=== PATIENT | male | born 1945 | race Caucasian/White ===

== ENCOUNTER 2017-02-05 16:08 | Inpatient (IN) | payer OTHER, MEDICARE ==
[~2017-02-05] VITALS: Ht 170.2 cm; Wt 91.0 kg
[2017-02-06] MEDS ORDERED: LISI40TA PO (10:58)
[2017-02-06] MEDS ORDERED: FISH1000 PO (10:58)
[2017-02-06] MEDS ORDERED: HYDR25TA5 PO (10:58)
[2017-02-06] MEDS ORDERED: GEMF600T PO (10:58)
[2017-02-06] MEDS ORDERED: MULTTAB67 PO (10:58)
[2017-02-06] MEDS ORDERED: ASPI1TAB69 PO (10:58)
[2017-02-07] MEDS ORDERED: SODIUM CHLORID 0.9% 500 ML IV PRN (06:30)
[2017-02-07] MEDS ORDERED: ROPIVACAINE PERI-ARTICULAR INJECTION. P-ARTICULR SCH ×5 (06:30)
[2017-02-07] MEDS: TRANEXAMIC ACID INJ 904 MG in SODIUM CHLORIDE 0.9% INJ 100 ML IV SCH ×2 (06:30→08:41)
[2017-02-07] MEDS ORDERED: VANCOMYCIN 1000 MG/NS 250 ML (for <70 kg) IV SCH ×2 (06:30)
[2017-02-07] MEDS ORDERED: POVIDONE IODINE 5% (ANTISEPSIS KIT) 4 APPLICATIONS EACH NARE PRN (06:30)
[2017-02-07] MEDS ORDERED: METOPROLOL TARTRATE 25 MG TAB PO PRN (06:30)
[2017-02-07] MEDS ORDERED: CHLORHEXIDINE GLUCONATE 2 % 1 PACK (2 CLOTHS) TOPICAL PRN (06:30)
[2017-02-07] MEDS ORDERED: DEXAMETHASONE SOD PHOS 20 MG/5 ML VIAL IV ONE (06:30)
[2017-02-07] MEDS ORDERED: LACTATED RINGER'S 1000 ML IV PRN (06:30)
[2017-02-07] MEDS ORDERED: INSULIN HUMAN REGULAR 1,000 UNITS/10 ML VIAL SQ PRN (06:30)
[2017-02-07] MEDS ORDERED: ceFAZolin 2 GM PREMIX 50 ML IV SCH (06:30)
--- NOTE | 2017-02-07 06:52 | HHI.DCPOC ---
Discharge Care Plan Your Health Problems Are: Difficulty with ADL Goals to Promote Your Health * To prevent worsening of your condition and complications * To maintain your health at the optimal level Directions to Meet Your Goals Take your medications as prescribed Follow your dietary instruction Follow activity as directed Keep your appointments as scheduled Take your immunizations and boosters as scheduled If your symptoms worsen call your PCP, if no PCP go to Urgent Care Center or Emergency Room Smoking is Dangerous to Your Health. Avoid second hand smoke Call the 24-hour hour crisis hotline for domestic abuse at Rik Rowe Feb 07, 2017 06:52
[2017-02-07] MEDS ORDERED: CPMMACHINE (06:54)
[2017-02-07] MEDS ORDERED: WALKER WHEELS/F1 MIS (06:54)
[2017-02-07] MEDS ORDERED: COMMODE 3-IN-11 MIS (06:54)
--- NOTE | 2017-02-07 06:54 | HHI.FF ---
Face to Face Verification Diagnosis: (1) Primary localized osteoarthrosis, lower leg (2) Status post total knee replacement, left Physical Therapy Gait training, Transfer training, bed to chair Knee: Total knee Left LE Weight Bearing: WB as tolerated Left LE Range of Motion: Active ROM Nursing Nursing: Ray teaching, Dressing changes Dressing Changes: Daily dressing change I have seen patient Tristin Connelly on 02/07/17. My clinical findings support the need for the requested home health care services because: Limited ability to care for self High risk of falls I certify that my clinical findings support that this patient is homebound because: Post-op weakness Unsteady gait/balance Rik Rowe Feb 07, 2017 06:54
[2017-02-07] MEDS: POVIDONE IODINE 7.5% SCRUB 118 ML BOTTLE TOPICAL SCH (07:15)
[2017-02-07 07:23] VITALS: BP 118/72; PULSE 63; RESP 18; TEMP 97.7; O2SAT 96
[2017-02-07] MEDS: GENTAMICIN SULFATE 80 MG/2 ML VIAL ONE ×2 (09:17→09:34)
[2017-02-07] MEDS ORDERED: PHENYLEPH/NS 1000 MCG/10 ML SYR IV ONE (10:00)
[2017-02-07] MEDS ORDERED: ONDANSETRON HCL 4 MG/2 ML VIAL IV PUSH ONE (10:00)
[2017-02-07] MEDS ORDERED: PROPOFOL 200 MG/20 ML AMP IV ONE (10:00)
[2017-02-07] MEDS ORDERED: ePHEDrine/NS 25 MG/5 ML SYR IV ONE (10:00)
[2017-02-07] MEDS ORDERED: LACTATED RINGER'S 1000 ML INJ 1,000 ML IV ONE (10:01)
[2017-02-07] MEDS: SODIUM CHLOR 0.9% 1000 ML INJ 1,000 ML IV SCH ×2 (10:38→20:38)
--- NOTE | 2017-02-07 10:42 | PD.OP ---
cc: Chip Andino MD Operative Report Date of Surgery: Feb 07, 2017 Preoperative Diagnosis: Left knee severe osteoarthritis Postoperative Diagnosis: Same Procedure: Left total knee arthroplasty Anesthesia: Adductor canal block and general Surgeon: Chip Andino Manager Organizational(s): RONALD Christie The surgical procedure was assisted by my Advanced Registered Nurse Practitioner. My DIAMOND SELECTOR presence was necessary throughout this case for the manipulation and positioning of the surgical extremity. My DIAMOND SELECTOR was assisting me throughout the duration of this procedure. The skill set of an Advance Registered Nurse Practitioner was medically necessary to complete this procedure. During the surgical case, the orthopaedic technologist was working at the back table and the Advance Registered Nurse Practitioner was directly assisting me. Operation and Findings: IMPLANTS: DePuy Attune: Patella: size 38. Femur, posterior stabilized size 9. Tibia, rotating platform size 8. Tibial insert, rotating platform, posterior stabilized size 10mm thickness. ESTIMATED BLOOD LOSS: 150 cc TOURNIQUET TIME: 45 minutes at 250 mmHg pressure. JUSTIFICATION FOR PROCEDURE: The patient has end-stage osteoarthritis to the knee. There is an attached conservative measures pathway form in the chart that describes the nonoperative measures that were undertaken prior to consideration of surgical management. The patient understood the risks and benefits of surgical management. See my office notes for further details PROCEDURE: The patient was brought back to the operative theatre. Adequate anesthesia was obtained. The patient received intravenous vancomycin and Ancef. The lower extremity was prepped and draped in the usual sterile fashion.The leg was exsanguinated, the tourniquet was raised. A standard anterior incision was performed followed by medial parapatellar arthrotomy was performed. End-stage arthritis was identified. Osteotomy of the patella was performed. We drilled holes for the patella. We trialed the patella component. We placed an intramedullary guide into the distal femur. We ultimately resected 13 mm off of the distal femur in 5 degrees of valgus. The remnants of the ACL and PCL were resected. Osteotomy of the proximal tibia was performed, resecting 7 mm off of the medial side. This was done with 3 degrees of posterior slope using an extramedullary guide. The distal end of the guide was placed in the mid aspect of the ankle. The femur was sized, and four chamfer cuts were completed in 3 of external rotation. We then cut the central box in the distal femur to replace the PCL. We resected the remnants of the menisci and removed osteophytes off of the femur and tibia. We then trialed the knee. We punched the tibia for the keel, and then used standard technique to cement in components. Excess cement was removed. We trialed the knee again and the final polyethylene thickness was chosen to provide extension to 0 degrees, and flexion of 140 degrees to gravity. The ligaments were appropriately balanced. Lateral release was necessary to obtain excellent patellofemoral tracking. The tourniquet was released and adequate hemostasis was obtained. An intra- articular injection of a ropivacaine cocktail was injected. The posterior knee was inspected for excess cement, which was removed. The final polyethylene was put into position after thorough irrigation. We then closed deep fascia with a #2 Stratafix followed by skin with 2-0 Vicryl followed by ishan. Postop plan is to weight-bear as tolerated. DVT prophylaxis will be performed with Tariq, GAURAV wilkerson, early mobilization, and Lovenox followed by aspirin. Chip Andino MD Feb 07, 2017 10:42
[2017-02-07] MEDS ORDERED: ASPI325T PO (10:44)
[2017-02-07] MEDS ORDERED: NORC5TAB PO (10:44)
[2017-02-07] MEDS ORDERED: ENOX40P SQ (10:44)
[2017-02-07] MEDS ORDERED: SODIUM CHLORIDE 0.9% FLUSH 5 ML FLUSH IVF PRN (10:45)
[2017-02-07] MEDS ORDERED: ALUMINUM/MAGNESIUM/SIMETH 30 ML CUP PO PRN (10:45)
[2017-02-07] MEDS ORDERED: BISACODYL 10 MG SUPP RECTAL PRN (10:45)
[2017-02-07] MEDS ORDERED: ZOLPIDEM TARTRATE 5 MG TAB PO PRN (10:45)
[2017-02-07] MEDS ORDERED: NALOXONE HCL 0.4 MG/ML AMP IV PRN (10:45)
[2017-02-07] MEDS ORDERED: ONDANSETRON HCL 4 MG/2 ML VIAL IVP PRN (10:45)
[2017-02-07] MEDS ORDERED: diphenhydrAMINE HCL 50 MG/ML VIAL IV PRN (10:45)
[2017-02-07] MEDS ORDERED: MAGNESIUM HYDROXIDE SUSP 30 ML CUP PO PRN (10:45)
[2017-02-07] MEDS ORDERED: MORPHINE SULFATE 4 MG/ML INJ IV PUSH PRN (10:45)
[2017-02-07] MEDS ORDERED: Post-op Orders (for Pharmacy) MISC XX ONE (10:45)
[2017-02-07] MEDS ORDERED: fentaNYL CITRATE 250 MCG/5 ML AMP ONE (11:16)
[2017-02-07] MEDS ORDERED: *morphine SULFATE 8 MG/ML PERIprocedure ONLY ONE (11:23)
--- NOTE | 2017-02-07 11:29 | PD.CONS ---
HPI Service [facility] Hospitalists Consult Requested By Chip Andino MD Reason for Consult Medical management Primary Care Physician Ilana Hollingsworth MD Diagnoses: (1) Primary localized osteoarthrosis, lower leg (2) Status post total knee replacement, left History of Present Illness This is a pleasant 71 y/o Male who was brought in with Diagnosis of Severe Left Knee Osteoarthritis, with status post Left Total Knee arthroplasty, He is been followed by Orthopedic market research specialist due to continuous throbbing sensation on the medial aspect of the left knee with increased symptoms with activity, grinding sensation on the left knee, seen status post Surgery stable complaint of left knee pain, nurse Miss Mcbride by his side. Review of Systems Musculoskeletal: COMPLAINS OF: Joint pain Past Family Social History Allergies: Coded Allergies: No Known Allergies (Unverified , 02/07/17) Past Medical History Hypertension OA Hyperlipidemia Past Surgical History Appendectomy Tonsillectomy Reported Medications Reported Meds & Active Scripts Active [place] (Hydrocodone-Acetaminophen) 5-325 mg Tab 1-2 Tab PO Q4H PRN Aspirin 325 Mg Tab 325 Mg PO DAILY Start Aspirin after Lovenox is completed. Lovenox Inj (Enoxaparin Sodium) 40 Mg/0.4 Ml Syr 40 Mg SQ DAILY Start Aspirin after Lovenox is completed. Reported Hydrochlorothiazide 25 Mg Tab 25 Mg PO DAILY Lisinopril 40 Mg Tab 40 Mg PO DAILY Gemfibrozil 600 Mg Tab 600 Mg PO BIDAC Take 30 minutes prior to breakfast and dinner. Aspirin 81 Mg Tabdr 81 Mg PO DAILY Fish Oil ([place]-3 Fatty Acids) 1,000 Mg Cap 1 Cap PO DAILY Multiple Vitamin 1 Tab 1 Tab PO DAILY Active Ordered Medications Current Medications Medications (Trade) Dose Ordered Sig/Maged Route Start Time Stop Time Status Last Admin Lactated Ringer's 1,000 ml @ 30 mls/hr Q24H PRN IV 02/07/17 06:30 02/10/17 06:29 02/07/17 07:37 (NS 500 ml Inj) 500 ml @ 30 mls/hr [id number] PRN IV 02/07/17 06:30 02/10/17 06:29 Povidone Iodine 1 applic 1 applic ONCE TOPICAL 02/07/17 06:30 02/10/17 06:29 02/07/17 07:15 Tranexamic Acid 904 mg/Sodium Chloride 109.04 ml @ 200 mls/ hr ONCE IV 02/07/17 06:30 02/08/17 12:30 02/07/17 08:41 (Naropin 0.5% Pf Inj/Toradol Inj/ Adrenalin (1:1000) Inj/ Duraclon Inj/NS Inj) 100 ml @ 200 mls/hr ONCE P-ARTICULR 02/07/17 06:30 02/08/17 06:29 (Lopid) 600 mg BIDAC PO 02/07/17 16:00 UNV (Hydrodiuril) 25 mg DAILY PO 02/08/17 09:00 UNV Non-Formulary Medication 40 mg 40 mg DAILY PO 02/08/17 09:00 UNV (NS 1000 ml Inj) 1,000 ml @ 100 mls/hr Q10H IV 02/07/17 10:38 UNV (NS Flush) 2 ml UNSCH PRN IVF 02/07/17 10:45 UNV IV Flush 2 ml 2 ml BID IVF 02/07/17 21:00 UNV (Ancef Inj/NS Inj) 100 ml @ 200 mls/hr Q6H IV 02/07/17 10:45 02/07/17 23:14 UNV (Post-op Orders (for Pharmacy)) STAT ONCE XX 02/07/17 10:45 02/07/17 10:46 UNV (Decadron Inj) 10 mg ONCE ONCE IV 02/08/17 07:45 02/08/17 07:46 UNV (Lovenox Inj) 40 mg Q24H SQ 02/07/17 10:45 02/16/17 10:46 UNV ([place] 5-325 Mg) 1 tab Q4H PRN PO 02/07/17 10:45 UNV Acetaminophen/ Hydrocodone Bitart 2 tab 2 tab Q4H PRN PO 02/07/17 10:45 UNV (Cyklokapron Inj/ NS Inj) 109 ml @ 200 mls/hr UNSCH IV 02/07/17 11:30 02/07/17 14:30 (Theragran M Tab) 1 tab BID PO 02/08/17 21:00 04/09/17 20:59 UNV (Zofran Inj) 4 mg Q6H PRN IVP 02/07/17 10:45 UNV (Colace) 100 mg BID PO 02/08/17 21:00 UNV (Mag-Al Plus Susp Liq) 30 ml Q6H PRN PO 02/07/17 10:45 UNV (Ambien) 5 mg HS PRN PO 02/07/17 10:45 UNV (Dulcolax Supp) 10 mg DAILY PRN GA 02/07/17 10:45 UNV (Milk Of Magnesia Liq) 30 ml DAILY PRN PO 02/07/17 10:45 UNV (Narcan Inj) 0.4 mg UNSCH PRN IV 02/07/17 10:45 UNV (Benadryl Inj) 25 mg Q6H PRN IV 02/07/17 10:45 UNV (Morphine Inj) 2 mg Q3H PRN IV PUSH 02/07/17 10:45 UNV Family History Mother with Hypertension Social History Lives with his and smoked until 25 years ago, and drink alcohol one drink daily Physical Exam Vital Signs Vital Signs Date Time Temp Pulse Resp B/P Pulse Ox O2 Delivery O2 Flow Rate FiO2 02/07/17 07:23 97.7 63 18 118/72 96 Physical Exam GENERAL: Obese patient in no acute distress. SKIN: No rashes, ecchymoses or lesions. Cool and dry. HEAD: Atraumatic. Normocephalic. No temporal or scalp tenderness. EYES: Pupils equal round and reactive. Extraocular motions intact. No scleral icterus. No injection or drainage. ENT: Nose without bleeding, purulent drainage or septal hematoma. Throat without erythema, tonsillar hypertrophy or exudate. Uvula midline. Airway patent. NECK: Trachea midline. No JVD or lymphadenopathy. Supple, nontender, no meningeal signs. CARDIOVASCULAR: Regular rate and rhythm without murmurs, gallops, or rubs. RESPIRATORY: Clear to auscultation. Breath sounds equal bilaterally. No wheezes , rales, or rhonchi. GASTROINTESTINAL: Abdomen soft, non-tender, nondistended. No hepato-splenomegaly , or palpable masses. No guarding. MUSCULOSKELETAL: Extremities without clubbing, cyanosis, or edema. left knee dressed. NEUROLOGICAL: Awake and alert. Laboratory Laboratory Tests Test 02/07/17 07:38 Blood Type A POSITIVE Antibody Screen NEGATIVE Blood Bank Comment Imaging No new imaging studies. Assessment and Plan Assessment and Plan 1. Severe Left Knee Osteoarthritis status post Left Total Knee arthroplasty, continue Pain Medicine, PT evaluation chef kitchen manager for discharge 2. Hypertension controlled continue home anti hypertensives 3. Hyperlipidemia to continue Home medicines 4. Obesity strongly recommended diet and exercise as outpatient DVT prophylaxis as per Orthopedic surgery. follow laboratory in am tomorrow. Code Status Full code. Discussed Condition With Patient and nurse Miss Mcbride appreciated. Zay Potter MD Feb 07, 2017 11:29
[2017-02-07] MEDS ORDERED: TRANEXAMIC ACID INJ 900 MG in SODIUM CHLORIDE 0.9% INJ 100 ML IV SCH (11:30)
--- NOTE | 2017-02-07 12:12 | RADRPT ---
EXAM DATE/TIME: 02/07/2017 12:38 [place] COMPARISON: No previous studies available for comparison. INDICATIONS : Post op knee replacement MEDICAL HISTORY : None. SURGICAL HISTORY : None. ENCOUNTER: Initial ACUITY: 1 day PAIN SCORE: Non-responsive. LOCATION: Left Knee FINDINGS: Left total knee arthroplasty is noted. Subcutaneous emphysema and overlying skin ishan are noted. T ibial and femoral components appear well seated. CONCLUSION: Postop left total knee arthroplasty. Julius Fleming MD on February 07, 2017 at 12:10 Board Certified Radiologist. This report was verified electronically.
[2017-02-07 12:30] VITALS: BP 103/66; PULSE 69; RESP 18; TEMP 95.5; O2SAT 96
[2017-02-07] MEDS ORDERED: BUPIVACAINE LIPOSOME PF 1.3% 20 ML VIAL ONE (12:47)
[2017-02-07] MEDS: ACETAMINOPHEN/HYDROcodone 325 MG/5 MG TAB PO PRN ×2 (15:20→21:47)
[2017-02-07] MEDS: GEMFIBROZIL 600 MG TAB PO SCH (15:20)
[2017-02-07 15:49] LABS: ANION GAP 10 MEQ/L (5-15); BICARBONATE 20.4 MEQ/L (21.0-32.0); BLOOD UREA NITROGEN 34 MG/DL (7-18); CHLORIDE 105 MEQ/L (98-107); GLOMERULAR FILTRATION RATE 45 ML/MIN (>89); POTASSIUM 4.5 MEQ/L (3.5-5.1); SODIUM (NA) 135 MEQ/L (136-145)
[2017-02-07 15:58] LABS: FREE T4 0.96 NG/DL (0.76-1.46); LDL CHOLESTEROL 92 MG/DL (0-99)
[2017-02-07 16:00] VITALS: BP 96/65; PULSE 67; RESP 18; TEMP 95.5; O2SAT 98
[2017-02-07 16:33] VITALS: O2SAT 96
--- NOTE | 2017-02-07 16:56 | OTSOAPIP ---
1400 PATIENT REQUESTS TO WAIT UNTIL TOMORROW TOO EXHAUSTED. JT Therapist: Marcia Gordon OTR/L Signature on file
[2017-02-07 19:45] VITALS: BP 108/75; PULSE 61; RESP 16; TEMP 97.6; O2SAT 95
[2017-02-07] MEDS: SODIUM CHLORIDE 0.9% FLUSH 5 ML FLUSH IVF SCH (21:00)
[2017-02-07 21:48] LABS: HEMOGLOBIN A1a 0.7 %; HEMOGLOBIN Ao 84.3 %; HEMOGLOBIN LA1C 2.5 %; HEMOGLOBIN P3 5.7 %
[2017-02-08 00:15] VITALS: BP 109/64; PULSE 61; RESP 16; TEMP 96; O2SAT 98
[2017-02-08] MEDS: POVIDONE IODINE 7.5% SCRUB 118 ML BOTTLE TOPICAL SCH (01:46)
[2017-02-08] MEDS: TRANEXAMIC ACID INJ 904 MG in SODIUM CHLORIDE 0.9% INJ 100 ML IV SCH (03:43)
[2017-02-08 04:12] VITALS: BP 105/59; PULSE 67; RESP 16; TEMP 96.5; O2SAT 98
[2017-02-08] MEDS: SODIUM CHLOR 0.9% 1000 ML INJ 1,000 ML IV SCH (05:58)
[2017-02-08] MEDS: ACETAMINOPHEN/HYDROcodone 325 MG/5 MG TAB PO PRN ×3 (05:58→15:19)
[2017-02-08] MEDS: GEMFIBROZIL 600 MG TAB PO SCH (05:58)
[2017-02-08 07:24] LABS: MEAN CORPUSCULAR HEMOGLOBIN 31.2 PG (27.0-34.0); MEAN CORPUSCULAR HGB CONC 34.3 % (32.0-36.0); PLATELET COUNT 162 TH/MM3 (150-450); RED BLOOD COUNT 3.62 MIL/MM3 (4.50-5.90); RED CELL DISTRIBUTION WIDTH 13.7 % (11.6-17.2); REVIEW FLAG FINAL; WHITE BLOOD COUNT 11.5 TH/MM3 (4.0-11.0)
[2017-02-08] MEDS ORDERED: DEXAMETHASONE SOD PHOS 20 MG/5 ML VIAL IV ONE (07:45)
[2017-02-08 08:00] VITALS: BP 111/62; PULSE 64; RESP 19; TEMP 96.7; O2SAT 97
--- NOTE | 2017-02-08 08:56 | HHI.PR ---
Subjective Remarks This is a pleasant 71 y/o Male who was brought in with Diagnosis of Severe Left Knee Osteoarthritis, with status post Left Total Knee arthroplasty, He is been followed by Orthopedic sales merchandising specialist due to continuous throbbing sensation on the medial aspect of the left knee with increased symptoms with activity, grinding sensation on the left knee, seen status post Surgery stable complaint of left knee pain. 02/08: Seen in the room in the presence of nurse Miss Peña and his , no complaint no Nausea, vomit or Diarrhea, left knee dressed, worked with Physical Therapy, ready for Discharge Objective Vital Signs Date Time Temp Pulse Resp B/P Pulse Ox O2 Delivery O2 Flow Rate FiO2 02/08/17 08:00 96.7 64 19 111/62 97 02/08/17 04:12 96.5 67 16 105/59 98 02/08/17 00:15 96.0 61 16 109/64 98 02/07/17 20:15 Room Air 02/07/17 19:45 97.6 61 16 108/75 95 02/07/17 16:33 96 Nasal Cannula 2.00 02/07/17 16:20 20 02/07/17 16:00 95.5 67 18 96/65 98 02/07/17 12:30 95.5 69 18 103/66 96 02/07/17 12:29 Nasal Cannula 2.00 02/07/17 12:00 97.8 68 12 102/63 96 Nasal Cannula 3 02/07/17 11:45 70 12 96/57 97 Nasal Cannula 3 02/07/17 11:30 71 12 92/64 97 Nasal Cannula 3 02/07/17 11:15 70 12 100/63 92 Nasal Cannula 3 02/07/17 11:08 97.5 75 14 129/63 97 Room Air I/O 02/07/17 02/07/17 02/07/17 02/08/17 02/08/17 02/08/17 07:00 15:00 23:00 07:00 15:00 23:00 Intake Total 1593 ml 480 ml Output Total 525 ml 200 ml 575 ml Balance 1068 ml -200 ml -95 ml Intake Oral 480 ml IV Total 393 ml Other 1200 ml Output Urine Total 475 ml 200 ml 575 ml Estimated Blood Loss 50 ml # Voids 1 # Bowel Movements 0 Result Diagram: 02/08/17 0613 02/07/17 1503 Imaging Last Impressions Knee X-Ray 02/07/17 1038 Signed Impressions: Service Date/Time: Tuesday, February 07, 2017 12:38 - CONCLUSION: Postop left total knee arthroplasty. Julius Fleming MD Procedures status post Left Total Knee arthroplasty 02/07/17 Other Results Laboratory Tests Test 02/07/17 02/07/17 02/08/17 07:38 15:03 06:13 Blood Type A POSITIVE Antibody Screen NEGATIVE Blood Bank Comment Sodium Level 135 MEQ/L Potassium Level 4.5 MEQ/L Chloride Level 105 MEQ/L Carbon Dioxide Level 20.4 MEQ/L Anion Gap 10 MEQ/L Blood Urea Nitrogen 34 MG/DL Creatinine 1.53 MG/DL Estimat Glomerular Filtration 45 ML/MIN Rate Random Glucose 165 MG/DL Hemoglobin A1c 5.7 % Calcium Level 8.5 MG/DL Magnesium Level 2.0 MG/DL Triglycerides Level 69 MG/DL Cholesterol Level 148 MG/DL LDL Cholesterol 92 MG/DL HDL Cholesterol 42.0 MG/DL Cholesterol/HDL Ratio 3.52 RATIO Free Thyroxine 0.96 NG/DL Thyroid Stimulating Hormone 0.735 uIU/ML 3rd Gen White Blood Count 11.5 TH/MM3 Red Blood Count 3.62 MIL/MM3 Hemoglobin 11.3 GM/DL Hematocrit 33.0 % Mean Corpuscular Volume 91.0 FL Mean Corpuscular Hemoglobin 31.2 PG Mean Corpuscular Hemoglobin 34.3 % Concent Red Cell Distribution Width 13.7 % Platelet Count 162 TH/MM3 Mean Platelet Volume 8.5 FL Objective Remarks GENERAL: Obese patient in no acute distress. SKIN: No rashes, ecchymoses or lesions. Cool and dry. HEAD: Atraumatic. Normocephalic. No temporal or scalp tenderness. EYES: Pupils equal round and reactive. Extraocular motions intact. No scleral icterus. No injection or drainage. ENT: Nose without bleeding, purulent drainage or septal hematoma. Throat without erythema, tonsillar hypertrophy or exudate. Uvula midline. Airway patent. NECK: Trachea midline. No JVD or lymphadenopathy. Supple, nontender, no meningeal signs. CARDIOVASCULAR: Regular rate and rhythm without murmurs, gallops, or rubs. RESPIRATORY: Clear to auscultation. Breath sounds equal bilaterally. No wheezes , rales, or rhonchi. GASTROINTESTINAL: Abdomen soft, non-tender, nondistended. No hepato-splenomegaly , or palpable masses. No guarding. MUSCULOSKELETAL: Extremities without clubbing, cyanosis, or edema. left knee dressed. NEUROLOGICAL: Awake and alert. Medications and IVs Current Medications Medications (Trade) Dose Ordered Sig/Maged Route Start Time Stop Time Status Last Admin Lactated Ringer's 1,000 ml @ 30 mls/hr Q24H PRN IV 02/07/17 06:30 02/10/17 06:29 02/07/17 07:37 (NS 500 ml Inj) 500 ml @ 30 mls/hr [id number] PRN IV 02/07/17 06:30 02/10/17 06:29 Povidone Iodine 1 applic 1 applic ONCE TOPICAL 02/07/17 06:30 02/10/17 06:29 02/07/17 07:15 (Cyklokapron Inj/ NS Inj) 109.04 ml @ 200 mls/ hr ONCE IV 02/07/17 06:30 02/08/17 12:30 02/07/17 08:41 (Lopid) 600 mg BIDAC PO 02/07/17 16:00 02/08/17 05:58 (Hydrodiuril) 25 mg DAILY PO 02/08/17 09:00 Lisinopril 40 mg 40 mg DAILY PO 02/08/17 09:00 (NS 1000 ml Inj) 1,000 ml @ 100 mls/hr Q10H IV 02/07/17 10:38 (NS Flush) 2 ml UNSCH PRN IVF 02/07/17 10:45 (NS Flush) 2 ml BID IVF 02/07/17 21:00 02/07/17 21:00 (Lovenox Inj) 40 mg Q24H SQ 02/08/17 10:00 02/17/17 10:01 ([place] 5-325 Mg) 1 tab Q4H PRN PO 02/07/17 10:45 02/07/17 15:20 ([place] 5-325 Mg) 2 tab Q4H PRN PO 02/07/17 10:45 02/08/17 05:58 (Theragran M Tab) 1 tab BID PO 02/08/17 21:00 04/09/17 20:59 (Zofran Inj) 4 mg Q6H PRN IVP 02/07/17 10:45 (Colace) 100 mg BID PO 02/08/17 21:00 (Mag-Al Plus Susp Liq) 30 ml Q6H PRN PO 02/07/17 10:45 (Ambien) 5 mg HS PRN PO 02/07/17 10:45 (Dulcolax Supp) 10 mg DAILY PRN RECTAL 02/07/17 10:45 (Milk Of Magnesia Liq) 30 ml DAILY PRN PO 02/07/17 10:45 (Narcan Inj) 0.4 mg UNSCH PRN IV 02/07/17 10:45 (Benadryl Inj) 25 mg Q6H PRN IV 02/07/17 10:45 (Morphine Inj) 2 mg Q3H PRN IV PUSH 02/07/17 10:45 A/P Assessment and Plan 1. Severe Left Knee Osteoarthritis status post Left Total Knee arthroplasty, continue Pain Medicine, PT evaluation chef kitchen manager for discharge 2. Hypertension controlled continue home anti hypertensives 3. Hyperlipidemia to continue Home medicines 4. Obesity strongly recommended diet and exercise as outpatient 5. Acute Kidney Injury, has Mild increase in Creatinine to 1.53 from 1.3 from admission encourage to drink plenty of fluids, will need follow up with PCP during the week to evaluate his renal function in two to three days. given script for Creatinine follow up. DVT prophylaxis as per Orthopedic surgery. Code Status Full code. Discussed Condition With Patient, and nurse Miss Peña in the room Discharge Planning Okay to discharge from Medicine standpoint, will need to follow with PCP in two to three days and follow renal function. Zay Potter MD Feb 08, 2017 08:56
[2017-02-08] MEDS: SODIUM CHLORIDE 0.9% FLUSH 5 ML FLUSH IVF SCH (09:00)
[2017-02-08] MEDS ORDERED: HYDROCHLOROTHIAZIDE 25 MG TAB PO SCH (09:00)
[2017-02-08] MEDS ORDERED: LISINOPRIL 20 MG TAB PO SCH (09:00)
[2017-02-08] MEDS ORDERED: ENOXAPARIN SODIUM 40 MG/0.4 ML SYRINGE SQ SCH (10:00)
[2017-02-08 12:00] VITALS: BP 115/64; PULSE 67; RESP 18; TEMP 97.2; O2SAT 98
--- NOTE | 2017-02-08 13:30 | PD.ORT.PN ---
Subjective Post Op Day #: 1 Subjective Remarks Patient is OOB in chair with minimal pain. Patient is requesting to go home today with home health. Objective Vitals Vital Signs Date Time Temp Pulse Resp B/P Pulse Ox O2 Delivery O2 Flow Rate FiO2 02/08/17 12:00 97.2 67 18 115/64 98 02/08/17 08:00 96.7 64 19 111/62 97 02/08/17 08:00 97 Room Air 02/08/17 04:12 96.5 67 16 105/59 98 02/08/17 00:15 96.0 61 16 109/64 98 02/07/17 20:15 Room Air 02/07/17 19:45 97.6 61 16 108/75 95 02/07/17 16:33 96 Nasal Cannula 2.00 02/07/17 16:20 20 02/07/17 16:00 95.5 67 18 96/65 98 I/O 02/07/17 02/07/17 02/07/17 02/08/17 02/08/17 02/08/17 07:00 15:00 23:00 07:00 15:00 23:00 Intake Total 1593 ml 480 ml Output Total 525 ml 200 ml 575 ml Balance 1068 ml -200 ml -95 ml Intake Oral 480 ml IV Total 393 ml Other 1200 ml Output Urine Total 475 ml 200 ml 575 ml Estimated Blood Loss 50 ml # Voids 1 # Bowel Movements 0 Result Diagram: 02/08/17 0613 02/07/17 1503 Procedures Left TKA Objective Remarks The patient's dressing is changed with scant serosanguineous drainage. Incision is well approximated with surgical clips intact. No redness or s/s of infection. EHL/TA/G intact. 2+ pedal pulse. Mild swelling. + SILT. Calf is soft and nontender. Assessment & Plan Ortho Post Op Day #: 1 Problem List: Assessment and Plan POD #1: Left TKA 1. WBAT LLE 2. Lovenox for DVT prophylaxis 3. Ice to the left knee PRN 4. Stable for discharge home with home health today. Rik Rowe Feb 08, 2017 13:30
[2017-02-08] MEDS ORDERED: MULTIVITAMINS/MINERALS THERAPEUTIC TAB PO SCH (21:00)
[2017-02-08] MEDS ORDERED: DOCUSATE SODIUM 100 MG CAP PO SCH (21:00)
--- NOTE | 2017-02-11 22:52 | HHI.DS ---
Discharge Summary Admission Date Feb 07, 2017 at 05:37 Discharge Date: Feb 08, 2017 Admitting Diagnosis Primary localized OA, lower leg Status post total knee arthroplasty, left Diagnosis: (1) Primary localized osteoarthrosis, lower leg Diagnosis: Principal (2) Status post total knee replacement, left Diagnosis: Principal Procedures Left TKA Brief History This is a 71 year old male patient with severe OA of the left knee. CBC/BMP: 02/08/17 0613 02/07/17 1503 PE at Discharge The patient's dressing is changed with scant serosanguineous drainage. Incision is well approximated with surgical clips intact. No redness or s/s of infection. EHL/TA/G intact. 2+ pedal pulse. Mild swelling. + SILT. Calf is soft and nontender. Hospital Course The patient was admitted to the hospital for severe OA of the left knee to have a left TKA. The patient's surgery went well without complication. The patient was placed on a regular diet and is WBAT on the left LE. The patient was discharged home with home health and will f/u with Dr. Andino in 1-2 weeks. Pt Condition on Discharge: Stable Discharge Disposition: Disch w/ Home Health Serv Discharge Instructions Diet Instructions: As Tolerated, No Restrictions Activities You Can Perform: Weight Bearing as [place] Activities to Avoid: Strenuous Activity Follow up Referrals: Orthopedics with Chip Andino MD SNF/INTERMEDIATE/ with [facility] Home New Medications: Aspirin (Aspirin) 325 Mg Tab 325 MG PO DAILY Start Aspirin after Lovenox is completed. Prevent Blood Clot # 30 Ref 0 TAB Commode 3-in-1 (Commode 3-in-1) 1 Mis Mis 1 EA .ROUTE DIRECTED #1 Ref 0 EA CPM-Continuous Passive Motion Machine (CPM-Continuous Passive Motion Machine) 1 Ea Device 1 EA .ROUTE DIRECTED #1 Ref 0 EA Enoxaparin Inj (Lovenox Inj) 40 Mg/0.4 Ml Syr 40 MG SQ DAILY Start Aspirin after Lovenox is completed. Blood Clot Prevention # 10 Ref 0 SYRINGE Hydrocodone-Acetaminophen ([place]) 5-325 mg Tab 1-2 TAB PO Q4H PRN PAIN #60 Ref 0 TAB Walker with Front Wheels (Walker with Front Wheels) 1 Mis Mis 1 EA .ROUTE DIRECTED #1 Ref 0 EA Continued Medications: Gemfibrozil (Gemfibrozil) 600 Mg Tab 600 MG PO BIDAC Take 30 minutes prior to breakfast and dinner. #60 Ref 0 TAB Hydrochlorothiazide (Hydrochlorothiazide) 25 Mg Tab 25 MG PO DAILY #30 Ref 0 TAB Lisinopril (Lisinopril) 40 Mg Tab 40 MG PO DAILY Blood Pressure Management #30 Ref 0 TAB Multiple Vitamin (Multiple Vitamin) 1 Tab 1 TAB PO DAILY Nutritional Supplement Ref 0 TAB Discontinued Medications: Aspirin (Aspirin) 81 Mg Tabdr 81 MG PO DAILY TAB [place]-3 Fatty Acids (Fish Oil) 1,000 Mg Cap 1 CAP PO DAILY Rik Rowe Feb 11, 2017 22:52
== END 2017-02-08 15:28 | disposition home health service (06) | DRG 470 ==
LOC: HSDI 02-07 05:37 → N06B 02-07 12:20
PROVIDERS: ADMIT Orthopaedic Surgery; ATTEND Orthopaedic Surgery
PROC: 3E0T3CZ (ICD-10-PCS; 2017-02-07)
PROC: 0SRD0J9 Replacement of Left Knee Joint with Synthetic Substitute, Cemented, Open Approach (ICD-10-PCS; principal; 2017-02-07 08:21)
DX: M17.12 Unilateral primary osteoarthritis, left knee (principal); N17.9 Acute kidney failure, unspecified; I10 Essential (primary) hypertension; E78.5 Hyperlipidemia, unspecified; E66.9 Obesity, unspecified; Z68.31 Body mass index [BMI] 31.0-31.9, adult; Z71.3 Dietary counseling and surveillance; Z87.891 Personal history of nicotine dependence
CPT/HCPCS: 73560; 80048; 80061; 83036; 83735; 84439; 84443; 85027; 86850; 86900; 86901; 94150; C1776; C9290; J0171; J0690; J0735; J1100; J1580; J1650; J1885; J2270; J2370; J2405; J2795; J3010; J3370; J7050; J7120; L1830